=== PATIENT | female | born 1970 | race Caucasian/White ===

== ENCOUNTER 2016-09-26 16:09 | Emergency (ER) | payer SELFPAY ==
--- NOTE | 2016-09-26 17:14 | ER Document Report ---
ED Medical Screen (RME) - General Chief Complaint: Painful cough, back pain, laryngitis Stated Complaint: DIFFICULTY BREATHING/SORE THROAT Time seen by provider: 17:08 Mode of Arrival: Ambulatory Information source: Patient Notes: 46-year-old female complaining of cough for 3 days, whole back pain since yesterday, worse with movement and sitting. The back pain was better with heat. Laryngitis started this morning. She has a dramatic gait demonstrating slow deliberate walk with back pain. No radiculopathy or saddle anesthesia. No urinary symptoms. No fever or chills. TRAVEL OUTSIDE OF THE [place] IN LAST 30 DAYS: No - Related Data Allergies/Adverse Reactions: oxycodone [Oxycodone] Allergy (Verified 10/10/15 12:06) Past Medical History - Past Medical History Cardiac Medical History: Denies: Hx Pulmonary Embolism Pulmonary Medical History: Reports: Hx Asthma Denies: Hx Bronchitis, Hx COPD, Hx Pneumonia, Hx Respiratory Failure, Hx Sleep Apnea, Hx Tuberculosis Malignancy Medical History: Denies: Hx Lung Cancer Psychiatric Medical History: Reports: Hx Bipolar Disorder Past Surgical History: Reports: Hx Appendectomy, Hx Section, Hx Cholecystectomy, Hx Hysterectomy, Hx Orthopedic Surgery - r foot w metal. Denies: Hx Bowel Surgery, Hx Coronary Artery Bypass Graft, Hx Gastric Bypass Surgery, Hx Herniorrhaphy, Hx Mastectomy, Hx Pacemaker, Hx Tonsillectomy, Hx Tubal Ligation - Immunizations Hx Diphtheria, Pertussis, Tetanus Vaccination: Yes Physical Exam - Vital signs Vitals: Temp Pulse Resp BP Pulse Ox 98.4 F 101 H 20 144/93 H 98 09/26/16 16:26 09/26/16 16:09/26/16 16:09/26/16 16:09/26/16 16:26 Course - Vital Signs Vital signs: Temp Pulse Resp BP Pulse Ox 98.4 F 101 H 20 144/93 H 98 09/26/16 16:26 09/26/16 16:26 09/26/16 16:26 09/26/16 16:26 09/26/16 16:26
[2016-09-26] MEDS ORDERED: ALBUTEROL SULFATE 0.083% NEB 2.5 MG/3 ML AMPUL NEB ONE (17:16)
[2016-09-26] MEDS ORDERED: IBUPROFEN 800 MG TABLET PO ONE (17:17)
[2016-09-26 18:31] LABS: ABSOLUTE BASOPHILS # (AUTO) 0.1 10^3/uL (0.0-0.2); ABSOLUTE EOSINOPHILS # (AUTO) 0.3 10^3/uL (0.0-0.6); ABSOLUTE LYMPHOCYTES (AUTO) 4.4 10^3/uL (0.5-4.7); ABSOLUTE MONOCYTES (AUTO) 0.7 10^3/uL (0.1-1.4); ABSOLUTE NEUT (AUTO) 9.4 10^3/uL (1.7-8.2); BASOPHILS % (AUTO) 0.5 % (0-2); EOSINOPHILS % (AUTO) 1.8 % (0-6); HEMATOCRIT 44.1 % (36.0-47.0); HEMOGLOBIN 14.9 g/dL (12.0-15.5); HGB HCT DIFFERENCE 0.6; LYMPHOCYTES % (AUTO) 29.6 % (13-45); MEAN CORPUSCULAR HEMOGLOBIN 30.2 pg (27.0-33.4); MEAN CORPUSCULAR HGB CONC 33.7 g/dL (32.0-36.0); MEAN CORPUSCULAR VOLUME 90 fl (80-97); MONOCYTES % (AUTO) 4.9 % (3-13); RED BLOOD COUNT 4.92 10^6/uL (3.72-5.28); SEGMENTED NEUTROPHILS % (AUTO) 63.2 % (42-78); WHITE BLOOD COUNT 14.8 10^3/uL (4.0-10.5)
[2016-09-26 18:46] LABS: ALANINE AMINOTRANSFERASE 119 U/L (9-52); ALBUMIN 4.7 g/dL (3.5-5.0); ALKALINE PHOSPHATASE 77 U/L (38-126); ANION GAP 16 (5-19); ASPARTATE AMINO TRANSFERASE 64 U/L (14-36); BILIRUBIN,TOTAL 0.6 mg/dL (0.2-1.3); BLOOD UREA NITROGEN 11 mg/dL (7-20); CALCIUM 10.1 mg/dL (8.4-10.2); CARBON DIOXIDE 23 mmol/L (22-30); CHLORIDE 103 mmol/L (98-107); CREATININE RESULT 0.61 mg/dL (0.52-1.25); GLUCOSE 86 mg/dL (75-110); POTASSIUM 4.6 mmol/L (3.6-5.0); SODIUM 142.2 mmol/L (137-145); TOTAL PROTEIN 8.5 g/dL (6.3-8.2)
[2016-09-26 18:54] LABS: APPEARANCE,URINE SLIGHTLY-CLOUDY; BILIRUBIN,URINE NEGATIVE (NEGATIVE); GLUCOSE, URINE NEGATIVE (NEGATIVE); KETONES,URINE NEGATIVE (NEGATIVE); LEUKOCYTE ESTERASE,URINE NEGATIVE (NEGATIVE); NITRITE,URINE NEGATIVE (NEGATIVE); PROTEIN,URINE NEGATIVE (NEGATIVE); URINE SPECIFIC GRAVITY 1.012; UROBILINOGEN,URINE NEGATIVE mg/dL (<2.0)
[2016-09-26] MEDS ORDERED: IBUPROFEN 600 MG TABLET PO ONE (22:25)
[2016-09-26] MEDS ORDERED: DEXAMETHASONE SOD PHOS INJ 10 MG/1 ML VIAL IM ONE (22:25)
--- NOTE | 2016-09-26 22:36 | ER Document Report ---
ED General - General Chief Complaint: Painful cough, back pain, laryngitis Stated Complaint: DIFFICULTY BREATHING/SORE THROAT Mode of Arrival: Ambulatory Notes: Patient is a 46-year-old female who presents with complaint of cough, congestion , and sore throat. She says that she's lost her voice from the coughing and her throat hurts every time she coughs. Some subjective fever. No vomiting. No diarrhea. She says it also hurts in her back when she coughs. She says the muscles along both sides for back are painful. No midline tenderness. No weakness or numbness and her legs. No loss of bowel control. No urinary retention. No dysuria. No other complaints at this time. She is not diabetic. TRAVEL OUTSIDE OF THE [place] IN LAST 30 DAYS: No - Related Data Allergies/Adverse Reactions: oxycodone [Oxycodone] Allergy (Verified 10/10/15 12:06) Past Medical History - General Information source: Patient - Social History Smoking Status: Unknown if Ever Smoked Frequency of alcohol use: None Drug Abuse: None Family History: Reviewed & Not Pertinent - Past Medical History Cardiac Medical History: Denies: Hx Pulmonary Embolism Pulmonary Medical History: Reports: Hx Asthma Denies: Hx Bronchitis, Hx COPD, Hx Pneumonia, Hx Respiratory Failure, Hx Sleep Apnea, Hx Tuberculosis Malignancy Medical History: Denies: Hx Lung Cancer Psychiatric Medical History: Reports: Hx Bipolar Disorder Past Surgical History: Reports: Hx Appendectomy, Hx Section, Hx Cholecystectomy, Hx Hysterectomy, Hx Orthopedic Surgery - r foot w metal. Denies: Hx Bowel Surgery, Hx Coronary Artery Bypass Graft, Hx Gastric Bypass Surgery, Hx Herniorrhaphy, Hx Mastectomy, Hx Pacemaker, Hx Tonsillectomy, Hx Tubal Ligation - Immunizations Hx Diphtheria, Pertussis, Tetanus Vaccination: Yes Hx Pneumococcal Vaccination: 06/26/11 Review of Systems - Review of Systems Notes: My Normal Review Basic REVIEW OF SYSTEMS: CONSTITUTIONAL : Denies fever, chills, or sweats. Denies recent illness. EENT: Sore throat. Is a congestion. CARDIOVASCULAR: Denies chest pain. RESPIRATORY: Cough GASTROINTESTINAL: Denies abdominal pain. Denies nausea, vomiting, or diarrhea. Denies constipation. Last BM: GENITOURINARY: Denies difficulty urinating, painful urination, burning, frequency, or blood in urine. MUSCULOSKELETAL: Denies neck or back pain or joint pain or swelling. SKIN: Denies rash or skin lesions. NEUROLOGICAL: Denies altered mental status or loss of consciousness. Denies headache. Denies weakness or paralysis or loss of use of either side. Denies problems with gait or speech. Denies sensory or motor loss. ALL OTHER SYSTEMS REVIEWED AND NEGATIVE. Physical Exam - Vital signs Vitals: Temp Pulse Resp BP Pulse Ox 98.4 F 101 H 20 144/93 H 98 09/26/16 16:26 09/26/16 16:26 09/26/16 16:26 09/26/16 16:26 09/26/16 16:26 - Notes Notes: General Appearance: Well nourished, alert, cooperative, no acute distress, no obvious discomfort. Well-appearing. Vitals: reviewed, See vital signs table. Head: no swelling or tenderness to the head Eyes: PERRL, EOMI, Conjuctiva clear Mouth: No decreasd moisture Throat: No tonsillar inflammation, No airway obstruction, No lymphadenopathy. Hoarse voice. Neck: Supple, no neck tenderness, No thyromegaly Lungs: No wheezing, No rales, No rhonci, No accessory muscle use, good air exchange bilaterally. No tachypnea. Lung mcmillan are clear. Patient has no stridor. Heart: Normal rate, Regular rythm, No murmur, no rub Abdomen: Normal BS, soft, No rigidity, No abdominal tenderness, No guarding, no rebound, no abdominal masses, no organomegaly Extremities: strength 5/5 in all extremities, good pulses in all extremities, no swelling or tenderness in the extremities, no edema. Back: Patient has pain to palpation of the lumbar and lower thoracic paraspinal musculature. No midline tenderness over the thoracic or lumbar spine. Skin: warm, dry, appropriate color, no rash Neuro: speech clear, oriented x 3, normal affect, responds appropriately to questions. Patellar reflexes are 2 out of 4 and equal bilaterally. Good strength with plantar flexion and dorsiflexion against assistance. Distal sensation intact. Course - Vital Signs Vital signs: Temp Pulse Resp BP Pulse Ox 98.0 F 88 18 132/74 H 98 09/26/16 23:30 09/26/16 23:30 09/26/16 23:30 09/26/16 23:30 09/26/16 23:30 - Laboratory Result Diagrams: 09/26/16 18:05 09/26/16 18:05 Laboratory results interpreted by me: 09/26/16 09/26/16 18:05 18:05 WBC 14.8 H Absolute Neutrophils 9.4 H AST 64 H ALT 119 H Total Protein 8.5 H - Transfer of Care Notes: 09/27/16 06:13 Patient appears have laryngitis. Force is a little bit hoarse. She has no stridor and no signs of impending airway compromise. I suspect that her laryngitis is due to her recurrent coughing. Chest x-ray is negative for pneumonia. I will give her a dose of Decadron. Suspect that her back pain is from the recurrent coughing. Her pain is easily reproducible palpation and hurts worse when she coughs. She has no evidence of any neurologic deficits from her back pain. No evidence of any spinal cord impingement. At this time I 'll discharge patient home. I encourage return to ER if she has worsening pain , difficulty breathing, fevers, or she feels unwell. Patient agrees with plan will be discharged home. Discharge - Discharge Clinical Impression: Laryngitis Back pain Qualifiers: Back pain location: back pain in unspecified location Chronicity: acute Back pain laterality: bilateral Qualified Code(s): M54.9 - Dorsalgia, unspecified URI (upper respiratory infection) Qualifiers: URI type: unspecified URI Qualified Code(s): J06.9 - Acute upper respiratory infection, unspecified Condition: Good Disposition: HOME, SELF-CARE Additional Instructions: UPPER RESPIRATORY ILLNESS: You have a viral infection of the respiratory passages -- a "cold." This common infection causes nasal congestion, drainage, and often sore throat and cough. It is highly contagious. The disease usually lasts about 10 to 14 days. There is no "cure" for the viral infection -- it must run its course. If there is a complication, such as bacterial infection in the nose, sinuses, middle ear, or bronchial tubes, antibiotics may be required. The antibiotics won't affect the virus. Drink plenty of fluids. A humidifier may help. An expectorant medication or decongestant may make you more comfortable. Use acetaminophen or ibuprofen for fever or aches. See the doctor if fever persists over two days, if there is any significant worsening of your symptoms, or if you simply fail to improve as expected. BRONCHOSPASM: You have tightness in the bronchial tubes, called bronchospasm. This often occurs with bronchial infections. Allergies, inhaled chemicals, and polluted or cold air can also provoke bronchospasm. It's more likely in patients with asthma in the family. Emergency treatment of bronchospasm may include adrenaline shots or bronchodilator aerosol. You may feel lightheaded and have a rapid pulse for an hour or two. Rest and get plenty of fluids. At home, we'll treat you with a bronchodilator inhaler. Antibiotics and corticosteroids may be required for some patients. Until you recover, avoid chemical fumes, dusts, pollens, and exercising in very cold or dry air. If you smoke, stop now!! If you develop a fever, increased wheezing, chest pain, or severe shortness of breath, you should contact the doctor immediately. STEROID MEDICATION: You have been given an injection of or oral medicine of the cortisone/ steroid class. This medication is used to control inflammation or allergy. Sony t is usually only given for a short period of time, until the acute process subsides. There are usually no side effects from short-term use of cortisone-like medications. Some persons feel an increased sense of well-being and are not sleepy at bedtime. Long-term use of cortisone medications is best avoided, unless required for a severe condition. If your condition does not remit, or relapses after the course of corticosteroid medication, you should consult your physician. FOLLOW-UP CARE: If you have been referred to a physician for follow-up care, call the physician s office for an appointment as you were instructed or within the next two days. If you experience worsening or a significant change in your symptoms, notify the physician immediately or return to the Emergency Department at any time for re-evaluation. PLease return to the ER immediately if you have worsening of your back pain, difficulty breathing, fevers, leg weakness or numbness, loss of control of your bowel function, or inability to urinate. Please follow up with a physician or the ER in 2 days for reevaluation. Prescriptions: Doxycycline Hyclate 100 mg PO BID #14 capsule Tramadol HCl 50 mg PO Q6 PRN #16 tablet PRN Reason: Pain Scale Of 3 Forms: Return to Work
[2016-09-26] MEDS ORDERED: DOXYCYCLINE HYCLATE 100 MG TABLET PO ONE (23:20)
[2016-09-26 23:38] VITALS: BP 132/74
== END 2016-09-26 23:38 | disposition home or self-care (01) ==
LOC: ER 16:09
DX: J04.0 Acute laryngitis (principal); R05 Cough; M54.9 Dorsalgia, unspecified; J02.9 Acute pharyngitis, unspecified; J45.909 Unspecified asthma, uncomplicated; Z88.5 Allergy status to narcotic agent
CPT/HCPCS: 99283; 96372; 36415; 87086; 85025; 80053; 81001; 71020; J1100

== ENCOUNTER 2017-01-03 15:38 | Emergency (ER) | payer SELFPAY ==
--- NOTE | 2017-01-03 16:03 | ER Document Report ---
ED Medical Screen (RME) - General Chief Complaint: Arm Pain Stated Complaint: FACE PAIN Notes: Patient says that she has noticed drooping of her right face over this past weekend and thinks it may have been present for the past week, but she didn't notice it until this weekend. She says it's painful to the right side of her face and her tearing is not well controlled. She also says that she's having sharp pains in her left arm and that both arms go to sleep and are tingly. Patient has never had this before. Never told she had carpal tunnel syndrome. Patient does have some slight facial drooping which may represent a mild case of Burgess's palsy TRAVEL OUTSIDE OF THE [place] IN LAST 30 DAYS: No - Related Data Allergies/Adverse Reactions: oxycodone [Oxycodone] Allergy (Verified 01/03/17 15:51) Past Medical History - Past Medical History Cardiac Medical History: Denies: Hx Pulmonary Embolism Pulmonary Medical History: Reports: Hx Asthma Denies: Hx Bronchitis, Hx COPD, Hx Pneumonia, Hx Respiratory Failure, Hx Sleep Apnea, Hx Tuberculosis Renal/ Medical History: Denies: Hx Peritoneal Dialysis Malignancy Medical History: Denies: Hx Lung Cancer Psychiatric Medical History: Reports: Hx Bipolar Disorder Past Surgical History: Reports: Hx Appendectomy, Hx Section, Hx Cholecystectomy, Hx Hysterectomy, Hx Orthopedic Surgery - r foot w metal. Denies: Hx Bowel Surgery, Hx Coronary Artery Bypass Graft, Hx Gastric Bypass Surgery, Hx Herniorrhaphy, Hx Mastectomy, Hx Pacemaker, Hx Tonsillectomy, Hx Tubal Ligation - Immunizations Hx Diphtheria, Pertussis, Tetanus Vaccination: Yes Physical Exam - Vital signs Vitals: Temp Pulse Resp BP Pulse Ox 99.2 F 100 16 167/76 H 96 01/03/17 15:45 01/03/17 15:45 01/03/17 15:45 01/03/17 15:45 01/03/17 15:45 Course - Vital Signs Vital signs: Temp Pulse Resp BP Pulse Ox 99.2 F 100 16 167/76 H 96 01/03/17 15:45 01/03/17 15:45 01/03/17 15:45 01/03/17 15:45 01/03/17 15:45
--- NOTE | 2017-01-03 18:07 | ER Document Report ---
ED General - General Mode of Arrival: Ambulatory Information source: Patient TRAVEL OUTSIDE OF THE [place] IN LAST 30 DAYS: No - HPI Patient complains to provider of: facial pain Associated symptoms: Other - See above <VICKIE ANDRADE - Last Filed: 01/03/17 20:01> <LUIS MCFARLAND - Last Filed: 01/03/17 21:23> - General Chief Complaint: Facial Droop Stated Complaint: FACE PAIN Notes: Patient is a 46 year old female who presents to the emergency department complaining of right sided facial pain. Patient states that her friends noticed her using the muscles in the right side of her face less before she did, patient also complains of pain in her right jaw, a twitch in her right eye, and intermittent right sided hearing loss. Patient also complains of left arm pain, and urinary incontinence 3 nights ago. Patient denies rash, insect bite, fever, and congestion. (VICKIE ANDRADE) - Related Data Allergies/Adverse Reactions: oxycodone [Oxycodone] Allergy (Verified 01/03/17 17:26) Past Medical History - General Information source: Patient - Social History Smoking Status: Never Smoker Chew tobacco use (# tins/day): No Frequency of alcohol use: None Drug Abuse: None Family History: Reviewed & Not Pertinent Patient has suicidal ideation: No Pulmonary Medical History: Reports: Hx Asthma Psychiatric Medical History: Reports: Hx Bipolar Disorder Past Surgical History: Reports: Hx Appendectomy, Hx Section, Hx Cholecystectomy, Hx Hysterectomy, Hx Orthopedic Surgery - r foot w metal - Immunizations Hx Diphtheria, Pertussis, Tetanus Vaccination: Yes Hx Pneumococcal Vaccination: 06/26/11 <VICKIE ANDRADE - Last Filed: 01/03/17 20:01> Review of Systems - Review of Systems Constitutional: denies: Fever EENT: See HPI, Eye pain, Other - jaw and face pain, hearing loss. denies: Nose congestion Cardiovascular: No symptoms reported Respiratory: No symptoms reported Gastrointestinal: No symptoms reported Genitourinary: No symptoms reported Female Genitourinary: No symptoms reported Musculoskeletal: No symptoms reported Skin: denies: Rash Hematologic/Lymphatic: No symptoms reported Neurological/Psychological: Numbness -: Yes All other systems reviewed and negative <VICKIE ANDRADE - Last Filed: 01/03/17 20:01> Physical Exam - Vital signs Interpretation: Normal - General General appearance: Appears well, Alert - HEENT Head: Normocephalic, Atraumatic Eyes: Normal Pupils: PERRL - Respiratory Respiratory status: No respiratory distress Chest status: Nontender Breath sounds: Normal Chest palpation: Normal - Cardiovascular Rhythm: Regular Heart sounds: Normal auscultation Murmur: No - Abdominal Inspection: Normal Distension: No distension Bowel sounds: Normal Tenderness: Nontender Organomegaly: No organomegaly - Back Back: Normal, Nontender - Extremities General upper extremity: Normal inspection, Nontender, Normal color, Normal ROM , Normal temperature General lower extremity: Normal inspection, Nontender, Normal color, Normal ROM , Normal temperature, Normal weight bearing. 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 No: Weakness Sensory: Altered light touch - Right face - Psychological Associated symptoms: Normal affect, Normal mood - Skin Skin Temperature: Warm Skin Moisture: Dry Skin Color: Normal <LUIS MCFARLAND - Last Filed: 01/03/17 21:23> - Vital signs Vitals: Temp Pulse Resp BP Pulse Ox 99.2 F 100 16 167/76 H 96 01/03/17 15:45 01/03/17 15:45 01/03/17 15:45 01/03/17 15:45 01/03/17 15:45 Course - Laboratory Result Diagrams: 01/03/17 18:30 01/03/17 18:30 <VICKIE ANDRADE - Last Filed: 01/03/17 20:01> - Laboratory Result Diagrams: 01/03/17 18:30 01/03/17 19:28 - Diagnostic Test Radiology reviewed: Reports reviewed <LUIS MCFARLAND - Last Filed: 01/03/17 21:23> - Re-evaluation Re-evalutation: 01/03/17 patient with no acute findings on CT. Blood work with some leukocytosis. No evidence for rheumatologic condition be some inflammatory markers. Patient has been under a lot of stress lately. Symptoms could be consistent with an early Burgess's palsy. Denies any tick bite. Denies any pain right now. No upper or lower extremity weakness or decrease in sensation. Patient will be started on prednisone and valacyclovir. She is to return if she is any worsening or concerning symptoms. Patient is to follow-up with the [facility]. Stable for discharge. (LUIS MCFARLAND) - Vital Signs Vital signs: Temp Pulse Resp BP Pulse Ox 99.4 F 93 16 141/95 H 96 01/03/17 18:59 01/03/17 21:13 01/03/17 21:13 01/03/17 21:13 01/03/17 21:13 - Laboratory Laboratory results interpreted by me: 01/03/17 01/03/17 18:30 19:28 WBC 16.2 H Absolute Neutrophils 10.1 H Carbon Dioxide 21 L Glucose 120 H AST 52 H ALT 92 H C-Reactive Protein 11.7 H Discharge <VICKIE ANDRADE - Last Filed: 01/03/17 20:01> <LUIS MCFARLAND - Last Filed: 01/03/17 21:23> - Discharge Clinical Impression: Burgess palsy Condition: Stable Disposition: HOME, SELF-CARE Instructions: Burgess's Palsy ([facility]), Steroid Medication Additional Instructions: Please follow-up with your doctor this week. Please return if you have any worsening symptoms. Prescriptions: Prednisone 40 mg PO DAILY #8 tablet Valacyclovir HCl [Valtrex] 1,000 mg PO TID #20 tablet Scribe Attestation: 01/03/17 21:23 I personally performed the services described in the documentation, reviewed and edited the documentation which was dictated to the scribe in my presence, and it accurately records my words and actions. (LUIS MCFARLAND) Scribe Documentation - Scribe Written by Pilo:: pilo Heard, 01/03/17 acting as scribe for :: Jose M <VICKIE ANDRADE - Last Filed: 01/03/17 20:01>
[2017-01-03 18:32] LABS: APPEARANCE,URINE CLEAR; BILIRUBIN,URINE NEGATIVE (NEGATIVE); GLUCOSE, URINE NEGATIVE (NEGATIVE); KETONES,URINE NEGATIVE (NEGATIVE); LEUKOCYTE ESTERASE,URINE NEGATIVE (NEGATIVE); NITRITE,URINE NEGATIVE (NEGATIVE); PROTEIN,URINE NEGATIVE (NEGATIVE); URINE SPECIFIC GRAVITY 1.009; UROBILINOGEN,URINE NEGATIVE mg/dL (<2.0)
[2017-01-03 18:39] LABS: ABSOLUTE BASOPHILS # (AUTO) 0.1 10^3/uL (0.0-0.2); ABSOLUTE EOSINOPHILS # (AUTO) 0.5 10^3/uL (0.0-0.6); ABSOLUTE LYMPHOCYTES (AUTO) 4.7 10^3/uL (0.5-4.7); ABSOLUTE MONOCYTES (AUTO) 0.8 10^3/uL (0.1-1.4); ABSOLUTE NEUT (AUTO) 10.1 10^3/uL (1.7-8.2); BASOPHILS % (AUTO) 0.6 % (0-2); HEMATOCRIT 43.9 % (36.0-47.0); HEMOGLOBIN 14.8 g/dL (12.0-15.5); HGB HCT DIFFERENCE 0.5; MEAN CORPUSCULAR HEMOGLOBIN 30.4 pg (27.0-33.4); MEAN CORPUSCULAR HGB CONC 33.7 g/dL (32.0-36.0); MEAN CORPUSCULAR VOLUME 90 fl (80-97); MONOCYTES % (AUTO) 4.9 % (3-13); RED BLOOD COUNT 4.87 10^6/uL (3.72-5.28); RED CELL DISTRIBUTION WIDTH 13.1 % (11.5-14.0); SEGMENTED NEUTROPHILS % (AUTO) 62.5 % (42-78); WHITE BLOOD COUNT 16.2 10^3/uL (4.0-10.5)
--- NOTE | 2017-01-03 18:54 | EKG REPORT ---
SEVERITY:- NORMAL ECG - SINUS RHYTHM : Confirmed by: Nate Longo MD 03-Jan-2017 18:52:39
--- NOTE | 2017-01-03 18:54 | EKG REPORT ---
SEVERITY:- BORDERLINE ECG - SINUS RHYTHM PROBABLE LEFT ATRIAL ABNORMALITY : Confirmed by: Nate Longo MD 03-Jan-2017 18:52:59
[2017-01-03 19:20] LABS: CREATINE KINASE MB < 0.22 ng/mL (<4.55); TROPONIN I < 0.012 ng/mL
[2017-01-03 19:26] LABS: ERYTHROCYTE SEDIMENTATION RATE 14 mm/hr (0-20)
[2017-01-03 20:04] LABS: ALANINE AMINOTRANSFERASE 92 U/L (9-52); ALBUMIN 4.8 g/dL (3.5-5.0); ALKALINE PHOSPHATASE 81 U/L (38-126); ANION GAP 14 (5-19); ASPARTATE AMINO TRANSFERASE 52 U/L (14-36); BILIRUBIN,DIRECT 0.3 mg/dL (0.0-0.4); BILIRUBIN,TOTAL 0.6 mg/dL (0.2-1.3); BLOOD UREA NITROGEN 10 mg/dL (7-20); C-REACTIVE PROTEIN 11.7 mg/L (<10.0); CALCIUM 10.1 mg/dL (8.4-10.2); CARBON DIOXIDE 21 mmol/L (22-30); CHLORIDE 106 mmol/L (98-107); CREATINE KINASE 67 U/L (30-135); CREATININE RESULT 0.68 mg/dL (0.52-1.25); GLUCOSE 120 mg/dL (75-110); POTASSIUM 4.1 mmol/L (3.6-5.0); SODIUM 141.3 mmol/L (137-145)
[2017-01-03] MEDS ORDERED: PREDNISONE 20 MG TABLET PO ONE (20:56)
[2017-01-03] MEDS ORDERED: VALACYCLOVIR HCL 500 MG TABLET PO ONE (20:57)
[2017-01-03 21:14] VITALS: BP 141/95
== END 2017-01-03 21:13 | disposition home or self-care (01) ==
LOC: ER 15:38
DX: R29.810 Facial weakness (principal); R51 Headache; R68.84 Jaw pain; M79.603 Pain in arm, unspecified; G51.0 Bell's palsy
CPT/HCPCS: 93005; 99285; 36415; 82553; 82550; 84443; 85025; 85652; 86140; 80053; 81001; 84484; 71020; 70450; 93010; J7512

== ENCOUNTER 2017-04-01 14:14 | Emergency (ER) | payer SELFPAY ==
[2017-04-01 14:22] VITALS: BP 141/92
[2017-04-01] MEDS ORDERED: KETOROLAC TROMETHAMINE 60 MG/2 ML SDV IM ONE (14:43)
[2017-04-01] MEDS ORDERED: CYCLOBENZAPRINE HCL 10 MG TABLET PO ONE (14:43)
--- NOTE | 2017-04-01 15:31 | ER Document Report ---
ED Neck/Back Problem - General Chief Complaint: Back Pain Stated Complaint: HIP/LEG PAIN Time Seen by Provider: 04/01/17 14:32 TRAVEL OUTSIDE OF THE [place] IN LAST 30 DAYS: No - HPI Patient complains to provider of: Pain, Lower back Onset: Other - 5 days ago picked up her thrashing 20lb nephew and had had back pain prior. pain located left lower back now with associated left leg pain. pain with ambulation Where: Home Onset: Gradual Timing: Still present Quality of pain: Achy, Pressure Context: Lifting Recent injury: Yes - 5 days ago Associated symptoms: Radiation to leg, Other - denie UI, SI, saddle anesthesia. able to bear shana and walk but with pain. denies: Fever, Incontinence, Motor loss, Numbness/tingling, Sensory loss, Unable to urinate Exacerbated by: Other - walking Relieved by: Supine, Lying on R side Similar symptoms previously: Yes - h/o muscle strain years ago Recently seen / treated by doctor: No - Related Data Allergies/Adverse Reactions: oxycodone [Oxycodone] Allergy (Verified 04/01/17 14:21) Past Medical History - Social History Smoking Status: Unknown if Ever Smoked Chew tobacco use (# tins/day): No Family History: Reviewed & Not Pertinent Patient has suicidal ideation: No Patient has homicidal ideation: No - Past Medical History Cardiac Medical History: Denies: Hx Pulmonary Embolism Pulmonary Medical History: Reports: Hx Asthma Denies: Hx Bronchitis, Hx COPD, Hx Pneumonia, Hx Respiratory Failure, Hx Sleep Apnea, Hx Tuberculosis Renal/ Medical History: Denies: Hx Peritoneal Dialysis Malignancy Medical History: Denies: Hx Lung Cancer Psychiatric Medical History: Reports: Hx Bipolar Disorder, Hx Depression Past Surgical History: Reports: Hx Appendectomy, Hx Section, Hx Cholecystectomy, Hx Hysterectomy, Hx Orthopedic Surgery - r foot w metal. Denies: Hx Bowel Surgery, Hx Coronary Artery Bypass Graft, Hx Gastric Bypass Surgery, Hx Herniorrhaphy, Hx Mastectomy, Hx Pacemaker, Hx Tonsillectomy, Hx Tubal Ligation - Immunizations Hx Diphtheria, Pertussis, Tetanus Vaccination: Yes Hx Pneumococcal Vaccination: 06/26/11 Review of Systems - Review of Systems Constitutional: No symptoms reported Genitourinary: No symptoms reported Musculoskeletal: See HPI Neurological/Psychological: See HPI -: Yes All other systems reviewed and negative Physical Exam - Vital signs Vitals: Temp Pulse Resp BP Pulse Ox 98.6 F 91 16 141/92 H 98 04/01/17 14:21 04/01/17 14:21 04/01/17 14:21 04/01/17 14:21 04/01/17 14:21 - General General appearance: Appears well, Anxious In distress: Mild - Cardiovascular Pulses: Normal: Femoral, Dorsalis pedis - Rectal Tenderness: No - rectal tone normal without laxity Hemorrhoids: None - Back Back: Tender - along left lumbar paraspinous musculature. No: Deformity/step- off, CVA tenderness, Vertebra tenderness, Scars, Scoliosis, Wounds - Extremities General upper extremity: Normal inspection, Nontender, Normal color, Normal ROM , Normal strength, Normal temperature General lower extremity: Normal inspection, Nontender, Normal color, Normal ROM , Normal strength, Normal temperature, Normal weight bearing - Neurological Neuro grossly intact: Yes Cognition: Normal Orientation: AAOx4 Mame Coma Scale Eye Opening: Spontaneous Mame Coma Scale Verbal: Oriented Mame Coma Scale Motor: Obeys Commands [place] Coma Scale Total: 15 Cranial nerves: Normal Cerebellar coordination: Normal Motor strength normal: LUE, RUE, LLE, RLE 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 No: Weakness Sensory: Normal - Skin Skin Temperature: Warm Skin Moisture: Dry Skin Color: Normal Skin Turgor: Elastic Course - Re-evaluation Re-evalutation: 04/01/17 20:41 The patient presents with low back pain without signs of spinal cord compression , cauda equina syndrome, infection, aneurysm, or other serious etiology. The patient is neurologically intact. Given the extremely low risk of these diagnoses further testing and evaluation for these possibilities does not appear to be indicated at this time. The patient has been instructed to return if the symptoms worsen or change in any way. - Vital Signs Vital signs: Temp Pulse Resp BP Pulse Ox 98.6 F 91 16 141/92 H 98 04/01/17 14:21 04/01/17 14:21 04/01/17 14:21 04/01/17 14:21 04/01/17 14:21 Discharge - Discharge Clinical Impression: Sciatica Qualifiers: Laterality: left Qualified Code(s): M54.32 - Sciatica, left side Condition: Good Disposition: HOME, SELF-CARE Instructions: Stretching Exercises for the Back ([facility]) Additional Instructions: LOW BACK PAIN: Three out of every four people will have an episode of disabling back pain during their lifetime. Most commonly the pain is due to straining of the muscles and ligaments in the low back. Usual treatment includes: (1) Rest on a firm surface. Avoid lying on your stomach. (2) Ice pack the painful area. After a few days, gentle heat may be used intermittently to relax the area, or ice packs can be continued. (3) Medication may be needed -- muscle relaxers and antiinflammatory medicines are commonly used. (4) As the back improves, exercises are prescribed to strengthen the back and abdominal muscles. Your doctor will advise you on the proper care for your back at each stage in your recovery. You may be better in a few days -- or healing may take several weeks. If new symptoms of a "herniated disc" (radiation of pain, numbness, or tingling down the back of the leg or weakness in the leg) occur, you should be re-examined. Further testing may be necessary. PAIN MEDICATION INJECTION: You have received an injection of a pain medication. You should experience significant pain relief within 45 minutes. If this injection was a narcotic -- it will impair your judgement, slow your reaction time and make you sleepy (as well as relieve your pain). Narcotics also can cause nausea. You should not drive, work with machinery, or perform any task requiring mental alertness until all effects of the medication are gone -- six to eight hours. Do not take any alcohol, or sedatives, and do not take any other medication without checking with your physician. MUSCLE RELAXERS: Muscle relaxing medications are usually prescribed for acute muscle spasm or injury to the neck and back. They are often combined with antiinflammatory pain medication for increased relief. You may stop the muscle relaxer when the pain and stiffness have improved. Start the medication again if spasms recur. Muscle relaxers may cause drowsiness, especially with the first dose. Do not operate machinery or drive while under the effects of the medication. Most muscle relaxers last up to 24 hours. Do not combine the medication with alcohol. ICE PACKS: Apply ice packs frequently against the painful area. Many different schedules are recommended, such as "20 minutes on, 20 minutes off" or "one hour ice, two hours rest." If you need to work, you may need to go longer between ice treatments. You should plan to have the area ice packed AT LEAST one fourth of the time. The ice should be applied over the wrap, tape, or splint, or over a layer of cloth -- not directly against the skin. Some ice bags have a built-in cloth and can be put directly on the skin. WARM PACKS: After approximately two days, apply gentle heat (such as a heating pad or hot water bottle) for about 20 to 30 minutes about every two hours -- at least four times daily. Warmth and elevation will help you make a more rapid recovery , and will ease the pain considerably. Do not use HOT heat, and never apply heat for longer than 30 minutes. The continuous heat can invisibly damage skin and muscles -- even when no burn is seen on the surface. Damaged muscles can make you MORE sore. FOLLOW-UP CARE: If you have been referred to a physician for follow-up care, call the physician s office for an appointment as you were instructed or within the next two days. If you experience worsening or a significant change in your symptoms, notify the physician immediately or return to the Emergency Department at any time for re-evaluation. Prescriptions: Cyclobenzaprine HCl [Flexeril 10 mg Tablet] 10 mg PO TIDP PRN #15 tab PRN Reason: Ibuprofen [Motrin 800 mg Tablet] 800 mg PO Q8H PRN #30 tab PRN Reason: Methylprednisolone [Medrol Dosepack (4 mg/Tab) 21 Tab/Dosepak] 4 mg PO ASDIR PRN #21 tab.ds.pk PRN Reason: Forms: Elevated Blood Pressure, Special Work Note, Return to Work Referrals: CHIARA LAWSON MD [NO LOCAL MD] - Follow up as needed
[2017-04-01] MEDS ORDERED: MORPHINE SULFATE 10 MG/ML INJ IM ONE (16:16)
== END 2017-04-01 17:33 | disposition home or self-care (01) ==
LOC: ER 14:14
DX: M54.32 Sciatica, left side (principal); Z90.49 Acquired absence of other specified parts of digestive tract; Z90.710 Acquired absence of both cervix and uterus; Z88.6 Allergy status to analgesic agent
CPT/HCPCS: 99283; 96372; J1885; J2270

== ENCOUNTER 2017-05-30 14:47 | Emergency (ER) | payer OTHER ==
[2017-05-30] MEDS ORDERED: TRAMADOL HCL 50 MG TABLET PO ONE (15:01)
[2017-05-30 15:06] VITALS: BP 145/87
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
== END 2017-05-30 16:41 | disposition home or self-care (01) ==
LOC: ER 14:47
DX: M54.5 Low back pain (principal); V49.40XA Driver injured in collision with unspecified motor vehicles in traffic accident, initial encounter; J45.909 Unspecified asthma, uncomplicated; Z88.5 Allergy status to narcotic agent
CPT/HCPCS: 72110; 99283